=== PATIENT | male | born 1995 | race Caucasian/White ===

== ENCOUNTER 2017-01-27 21:14 | Inpatient (IN) | payer BC, OTHER ==
[~2017-01-27] VITALS: Ht 180.3 cm; Wt 74.6 kg
[2017-01-27 22:07] LABS: URINE APPEARANCE CLEAR (CLEAR); URINE BILIRUBIN NEG (NEG); URINE COLOR YELLOW; URINE NITRITE NEG (NEG); URINE PH 6.5 (4.5-7.5); URINE SPECIFIC GRAVITY 1.008 (1.000-1.030); UROBILINOGEN NEG (NEG); ZZUR CULT IF INDIC CLEAN CATCH NO
[2017-01-27 22:08] LABS: MANUAL MICROSCOPIC REQUIRED? NO; REVIEW REQ? NO
[2017-01-27] MEDS ORDERED: HALOPERIDOL LACTATE 5 MG/ML 1 ML VIAL IM STA (22:20)
[2017-01-27] MEDS ORDERED: LORAZEPAM 2 MG/ML 1 ML VIAL IM STA (22:20)
--- NOTE | 2017-01-27 22:21 | EMERGENCY ROOM VISIT NOTE ---
History Report prepared by Sujata: Antoine Winters Under the Supervision of: Dr. Gladis Mckee M.D. First contact with patient: 21:57 Chief Complaint: MENTAL HEALTH EVALUATION Stated Complaint: MED REFILL, MANIC History of Present Illness The patient is a 21 year old male who presents to the Emergency Room with a persistent need for a mental health evaluation for the past few days. The patient was brought here by [facility] from his dorm, after they received a call from [facility] about the patient's recent "odd behavior". The patient states here that he has no idea why he is here, and is upset with the police because they did not tell him why he was brought here, and the patient wants to know who called the police. The patient notes that he has been in contact with [facility] and [facility], as he is trying to get back on his Wellbutrin, which he has been off of since the end of the summer of 2016. Per the patient's mother , the patient has diagnosed mood disorder, bipolar, and depression. She states that the patient has been trying to get back on his medication since coming back to school, but it is taking a lot longer than they had hoped for. The patient states that he had an incident yesterday, and was locked out of his dorm , and was talking to himself about how he lost his keys, but he woke up someone in a nearby room, so the dorm was going to have a discussion about the incident. He states that he has been okay the past few days, and has been productive with his conversations with [facility] and [employer]. Source of History: patient, parent Onset: Past few days Position: other (global - need for mental health evaluation) Symptom Intensity: brought in by [place] [employer] Quality: other ("odd behavior") Timing: other (persistent) Note: Associated symptoms: Says he has been fine recently, but had incident yesterday in dorm. Review of Systems See HPI for pertinent positives & negatives. A total of 10 systems reviewed and were otherwise negative. Past Medical & Surgical Medical Problems: (1) bipolar 1 disorder, currently with mixed features (2) Bipolar disorder (3) Depression (4) Mood disorder (5) No pertinent past medical history Family History No pertinent family history Social History Smoking Status: Former Smoker Marital Status: single Housing Status: lives with roommate Occupation Status: [employer] student Current/Historical Medications No Active Prescriptions or Reported Meds Allergies Coded Allergies: No Known Allergies (Unverified , 01/27/17) Physical Exam Vital Signs Date Time Temp Pulse Resp B/P (MAP) Pulse Ox O2 Delivery O2 Flow Rate FiO2 01/27/17 23:15 104 18 146/92 96 Room Air 01/27/17 21:17 36.2 101 18 166/92 99 Room Air Physical Exam Vital signs reviewed. General: Agitated, slightly disheveled 21 year old male, in no significant distress. HEENT: No scleral icterus, PERRLA, neck supple. Atraumatic. Cardiovascular: Regular rate and rhythm, no extra sounds. Pulmonary: Clear to auscultation bilaterally, normal work of breathing. Abdomen: Soft, nontender, nondistended, positive bowel sounds. Musculoskeletal: Atraumatic, no peripheral edema. Neurologic: Patient awake alert and oriented x 3, full strength in all 4 extremities. Cranial nerves 2 through 12 grossly intact. Psych: Agitated. No SI, no HI, but aggressive and slamming bed and kicking chairs. Skin: Warm, dry, no rash Medical Decision & Procedures Laboratory Results 01/27/17 22:02 Red Blood Count 4.71, Mean Corpuscular Volume 90.2, Mean Corpuscular Hemoglobin 31.6, Mean Corpuscular Hemoglobin Concent 35.1, Mean Platelet Volume 10.5, Neutrophils (%) (Auto) 80.9, Lymphocytes (%) (Auto) 11.8, Monocytes (%) (Auto) 6.7, Eosinophils (%) (Auto) 0.0, Basophils (%) (Auto) 0.3, Neutrophils # (Auto) 9.08, Lymphocytes # (Auto) 1.32, Monocytes # (Auto) 0.75, Eosinophils # (Auto) 0.00, Basophils # (Auto) 0.03 01/27/17 22:02 Test 01/27/17 21:55 01/27/17 22:02 Urine Color YELLOW Urine Appearance CLEAR (CLEAR) Urine pH 6.5 (4.5-7.5) Urine Specific Tebbetts 1.008 (1.000-1.030) Urine Protein NEG (NEG) Urine Glucose (UA) NEG (NEG) Urine Ketones NEG (NEG) Urine Occult Blood NEG (NEG) Urine Nitrite NEG (NEG) Urine Bilirubin NEG (NEG) Urine Urobilinogen NEG (NEG) Urine Leukocyte Esterase NEG (NEG) Urine Opiates Screen NEG (NEG) Urine Methadone, Qualitative NEG (NEG) Urine Barbiturates NEG (NEG) Urine Phencyclidine (PCP) Level NEG (NEG) Ur Amphetamine/Methamphetamine NEG (NEG) MDMA (Ecstasy) Screen NEG (NEG) Urine Benzodiazepines Screen NEG (NEG) Urine Cocaine Metabolite NEG (NEG) Urine Marijuana (THC) NEG (NEG) White Blood Count 11.21 K/uL (4.8-10.8) Red Blood Count 4.71 M/uL (4.7-6.1) Hemoglobin 14.9 g/dL (14.0-18.0) Hematocrit 42.5 % (42-52) Mean Corpuscular Volume 90.2 fL (80-100) Mean Corpuscular Hemoglobin 31.6 pg (25-34) Mean Corpuscular Hemoglobin Concent 35.1 g/dl (32-36) Platelet Count 282 K/uL (130-400) Mean Platelet Volume 10.5 fL (7.4-10.4) Neutrophils (%) (Auto) 80.9 % Lymphocytes (%) (Auto) 11.8 % Monocytes (%) (Auto) 6.7 % Eosinophils (%) (Auto) 0.0 % Basophils (%) (Auto) 0.3 % Neutrophils # (Auto) 9.08 K/uL (1.4-6.5) Lymphocytes # (Auto) 1.32 K/uL (1.2-3.4) Monocytes # (Auto) 0.75 K/uL (0.11-0.59) Eosinophils # (Auto) 0.00 K/uL (0-0.5) Basophils # (Auto) 0.03 K/uL (0-0.2) RDW Standard Deviation 40.6 fL (36.4-46.3) RDW Coefficient of Variation 12.3 % (11.5-14.5) Immature Granulocyte % (Auto) 0.3 % Immature Granulocyte # (Auto) 0.03 K/uL (0.00-0.02) Anion Gap 7.0 mmol/L (3-11) Est Creatinine Clear Calc Drug Dose 102.8 ml/min Estimated GFR () 98.3 Estimated GFR (Non- 84.8 BUN/Creatinine Ratio 19.0 (10-20) Calcium Level 9.0 mg/dl (8.5-10.1) Total Bilirubin 0.5 mg/dl (0.2-1) Aspartate Amino Transf (AST/SGOT) 16 U/L (15-37) Alanine Aminotransferase (ALT/SGPT) 27 U/L (12-78) Alkaline Phosphatase 70 U/L (45-117) Total Protein 7.9 gm/dl (6.4-8.2) Albumin 4.7 gm/dl (3.4-5.0) Globulin 3.2 gm/dl (2.5-4.0) Albumin/Globulin Ratio 1.5 (0.9-2) Thyroid Stimulating Hormone (TSH) 1.730 uIu/ml (0.300-4.500) Salicylates Level < 1.7 mg/dl (2.8-20) Acetaminophen Level < 2 ug/ml (10-30) Ethyl Alcohol mg/dL < 3.0 mg/dl (0-3) Laboratory results per my review. Medications Administered Medications (Trade) Dose Ordered Sig/Archie Route Start Time Stop Time Status Last Admin Dose Admin Ibuprofen (Advil Tab) 400 mg STK-MED ONCE .ROUTE 01/28/17 01:31 01/28/17 01:32 DC 01/28/17 01:35 400 MG ED Course 2208: Past medical records reviewed. The patient was evaluated in room A7. A complete history and physical examination was performed. 2220: Ordered Ativan Inj 2 mg IM, Haldol Inj 5 mg IM. 0130: The patient was signed out to Dr. Puga at change of shift. Medical Decision Differential diagnosis: Etiologies such as mood disorder, infection, hypoglycemia, electrolyte abnormalities, cardiac sources, intracerebral event, toxicologic, neurologic, as well as others were entertained. This pt was evaluated and appeared to be in no distress. After a short period of discussion, pt became agitated and aggressive. He was not clearly suicidal, but began to show his lack of insight. After discussion with pt family, it is evident that he needed inpatient treatment. Mental health watch case polisher was consulted, pt was evaluated by [facility]. Case was signed out to Dr Puga at the change of shift pending disposition. Medication Reconcilliation Current Medication List: was personally reviewed by me Blood Pressure Screening Patient's blood pressure: Elevated blood pressure Blood pressure disposition: Elevated BP felt to be situational Impression Primary Impression: Mood disorder Scribe Attestation The scribe's documentation has been prepared under my direction and personally reviewed by me in its entirety. I confirm that the note above accurately reflects all work, treatment, procedures, and medical decision making performed by me. Departure Information Dispostion Still a Patient (signed out to Dr. Puga) Prescriptions No Active Prescriptions or Reported Meds Patient Instructions My [facility]
[2017-01-27 22:24] LABS: BASO % 0.3 %; BASO ABS # 0.03 K/uL (0-0.2); COMPLETE YES; HEMATOCRIT 42.5 % (42-52); IG% 0.3 %; LYMPH % 11.8 %; LYMPH ABS # 1.32 K/uL (1.2-3.4); MEAN CELL VOLUME 90.2 fL (80-100); MEAN CORPUSCULAR HEMOGLOBIN 31.6 pg (25-34); MEAN CORPUSCULAR HGB CONC 35.1 g/dl (32-36); MEAN PLATELET VOLUME 10.5 fL (7.4-10.4); MONO % 6.7 %; NEUT % 80.9 %; PLATELET COUNT 282 K/uL (130-400); RED BLOOD COUNT 4.71 M/uL (4.7-6.1); WHITE BLOOD COUNT 11.21 K/uL (4.8-10.8)
[2017-01-27 22:39] LABS: BENZODIAZEPINE, URINE NEG (NEG); COCAINE,URINE NEG (NEG); PHENCYCLIDINE, URINE NEG (NEG)
[2017-01-27 22:40] LABS: CREATININE 1.22 mg/dl (0.60-1.40); POTASSIUM 3.6 mmol/L (3.5-5.1)
[2017-01-27 22:51] LABS: ALB/GLOB RATIO 1.5 (0.9-2); THYROID STIMULATING HORMONE 1.73 uIu/ml (0.300-4.500)
[2017-01-27 22:55] LABS: ACETAMINOPHEN < 2 ug/ml (10-30)
[2017-01-28] MEDS ORDERED: IBUPROFEN 200 MG TAB ONE (01:31)
[2017-01-28] MEDS ORDERED: NURSING VERBAL MED ORDER ONE (05:00)
[2017-01-28 05:13] VITALS: O2SAT 99
--- NOTE | 2017-01-28 05:14 | EMERGENCY ROOM VISIT NOTE ---
ED Visit Note First contact with patient: 01:21 This case was signed out to me at change of shift awaiting evaluation by staff from [facility]. 1:30: Patient complained of a headache and was given 800 mg of Motrin. 3:45: The patient had an extensive evaluation by the staff from [facility]. They had significant concerns for the patient's overall safety and ability to make safe decisions. They had multiple conversations with the patient's mother father. I had a lengthy conversation with the patient at the bedside and he agreed that he needed some help and was willing to sign himself in voluntarily for inpatient psychiatric care. 0450: The patient has signed himself in voluntarily and has been accepted on [facility].
[2017-01-28] MEDS ORDERED: BISMUTH SUBSALICYLATE PER ML OMNICELL CHARGE PO PRN (05:30)
[2017-01-28] MEDS ORDERED: ACETAMINOPHEN 325 MG TAB PO PRN (05:30)
[2017-01-28] MEDS ORDERED: hydrOXYzine HCL 25 MG TAB PO PRN ×2 (05:30)
[2017-01-28] MEDS ORDERED: SODIUM CHLORIDE 0.65% NA SOLN 45 ML (OCEAN) PRN (05:30)
[2017-01-28] MEDS ORDERED: ALUMINUM/MAGNESIUM SUSP 30 ML UDC PO PRN (05:30)
[2017-01-28] MEDS ORDERED: MAGNESIUM HYDROXIDE SUSP 30 ML UDC PO PRN (05:30)
[2017-01-28 06:04] VITALS: BP 136/75; PULSE 80; TEMP 36.2; Ht 180.3 cm; Wt 74.6 kg
[2017-01-28 07:11] VITALS: BP_SYST 144; BP_SYST 158; BP_DIAS 74; BP_DIAS 83; PULSE 64; PULSE 74; TEMP 36.8
[2017-01-28] MEDS ORDERED: RISPERIDONE 0.5 MG TAB PO ONE (10:59)
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
--- NOTE | 2017-01-28 12:22 | Medical Student: BHU Only ---
Psychiatric Evaluation IDENTIFYING DATA: Gonzalo Andres is a 21-year-old male who currently lives in [place] in a [employer] dorm with roommate. Gonzalo Andres was admitted to the [facility] on a 201 voluntary commitment. Gonzalo Andres was brought to the hospital by the police. Information provided by the patient is considered to be reliable. CHIEF COMPLAINT: "[patients report in their own words]". HISTORY OF PRESENT ILLNESS: Nolberto is a 21 year old male with a history of bipolar I disorder and major depressive disorder who presented to the ED last night by police transport for an apparent manic episode. Last night he states he was locked out of his dorm room and was visibly frustrated. The RA (someone named "Sukumar") tried to talk to him, and he became increasingly agitated. Someone, presumably Sukumar, called the campus police, who brought Nolberto to the ED. Per staff in ED, Nolberto was restless, at times walking around his room singing or doing push-ups. Initially [facility] was called for a 301, but they denied it; Nolberto then signed in voluntarily and was brought to [address] [place] [address] early this morning. According to [facility], there had been several complaints about Nolberto standing outside of another student's dorm room, which made her uncomfortable, as well as erratic and nonsensical behavior, including talking to himself and singing while walking the dorm halls. They also said that Nolberto had complained of "bugs in my lungs" and "crawling all over me." He was also assessed by [facility] -- those records are being sent. According to Nolberto, he has recently been in contact with [facility] and [facility], and saw Dr. Marcano on Wednesday because he "wanted to go back on [his] medication". He told us that in the past he had been prescribed Abilify and Wellbutrin for his major depressive disorder but that he had stopped taking both medications in March 2016 because he felt he did not need them anymore. He is not currently on any psychiatric medications. This semester, he has had trouble staying focused and has been sleeping 12-15 hours per night. He said that he has had to drop two classes because of absences and because of his inability to "focus on tests in a big lecture anderson." He is currently taking two classes that are going "okay". 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 Nolberto has history of two prior hospital admissions for psychiatric illness, one while he was in high school and one in April 2015. Both were for major depressive disorder. His mother states that he has had manic episodes in the past, during which he has pressured speech and speaks quickly, doesn't sleep at night, goes for long walks, and is increasingly irritable with a "quick temper. " He is much more outgoing and talkative than usual during these episodes. She states that his current state is very similar to his past episodes (she observed very simialr behavior when he was home for giving break) but that this has lasted longer. She also said that he has exhibited some paranoia, that he thinks certain people are out to get him (he described being suspicious of an ex-girlfriend's brother for "putting a virus on my phone"), and that he has increased trouble focusing. His last episode that his mother is aware of was over the summer than he was home. On presentation today, Nolberto states that his mood has been "a little down" recently and that he has been sleeping excessivley. His appetite has been "good ". He admits that he has had a lot of problems with focus and concentration and some increase in energy levels. He appears irritable and slightly agitated. He states that he has many interests and that he still finds those to be enjoyable. He denies any suicidal or homicidal ideation as well as SIB. CURRENT MEDICATIONS: 1. None. PAST PSYCHIATRIC HISTORY: Current outpatient mental health treatment: []. Prior outpatient mental health treatment: []. Prior psychiatric hospitalizations: []. Prior medication trials: [Describe as to how long on medication, any side effects, who started the meds, have they been helpful, why was the medication stopped, etc.]. Prior suicide attempts: []. Access to weapons: [] PAST MEDICAL HISTORY: Current OP Treatment: psychiatrist (Dr. Vernell Cabral) Prior OP Treatment: psychiatrist Prior Psych [facility]izations[facility]; first hospitalization when he was in high school; second was in April 2015 Access to a Gun: No Suicide Attempts: No Past Medication Trials 1. Abilify and Wellbutrin-used together, thought they worked well, stopped in March 2016 when he no longer felt he needed them 2. Remeron-not helpful 3. Prozac-only on for 5 days during his first hospitalization, developed diarrhea ALLERGIES: No known allergies. FAMILY HISTORY: Mental Health: father with depression Substance Abuse: FGM/FGF/MGM with history of alcohol abuse Suicide: none SUBSTANCE USE HISTORY: Tobacco use hx: smoked cigars, "vaping"; hasn't used either for several months Caffeine use hx: coffee Marijuana use: hasn't used it in 9 months but wants to start again when he goes to [place] to visit sister PERSONAL HISTORY: Born: [place], [place]. Lives with both parents and has good relationships with them. Siblings: Older sister, lives in [place]. Mom says they are very close. Education: Currently computer science major at [employer]. Hopes to graduate in 2019. Has had "good" grades until this semester, when trouble focusing increased. Work History: Part-time jobs during the summer; fired from on-campus job at dining [employer] (see above). Relationship History: Ex-girlfriend; they broke up over the summer. Has few friends. Those he had have left campus for various reasons. Children: none. Spiritual Affiliation: Gnosticism; raised in [facility] am[place]. Reads his Bible when he is feeling "down". Legal History: [specifically inquire of DUIs, disorderly conducts]. Physical abuse history: None. Emotional/psychological abuse history: None. Sexual abuse history: None. ROS: CONSTITUTIONAL: 5-7 lb weight loss over las few weeks; no fevers or chills. HEENT: Eyes: no changes in vision. Ears, Nose, Throat: no cough, change in hearing, nose bleeds. SKIN: No recent rashes or abrasions; notes dryness of hands due to "cold weather". CARDIOVASCULAR: No palptations, chest pain, edema. RESPIRATORY: No shortness of breath, cough. GASTROINTESTINAL: Mild nausea that has how resolved; no vomiting, diarrhea. GENITOURINARY: Deferred. NEUROLOGICAL: No numbness/tingling, weakness. MUSCULOSKELETAL: Normal ROM for all extremities, no swelling, no calf pain. PSYCHIATRIC: See above HPI. ALLERGIES: None. PHYSICAL EXAM: Done in ED by Dr. Mckee and agree. Medically cleared to be on [facility]. MENTAL STATUS EXAM: Appearance is that of a disheveled, casually dressed male who appears his stated age. The patient is generally cooperative with the interview. Eye contact is poor. Motor behavior is agitated, restless. Speech: normal volume, increased rate. Is pressured and rambles. Affect: irritable. Mood: "fine". Thought process: circumstantial, tangential. Thought content: paranoia. Perception: no hallucinations. Intelligence is estimated to be above average. Insight is estimated to be fair. Judgment is estimated to be fair. INVENTORY OF ASSETS: * strengths: Supportive family, many interests. * resources: Family, mental health providers, [employer] [facility] and Student Affairs. * needs: Medication trial, monitor mood, mitigate manic episode. RISK ASSESSMENT: * Risk factors: Male, , single, Higher social status, Mental Health Diagnoses (depression, bipolar I), Substance Use Disorders (previous marijuana use), Previous psychiatric hospitalization * Protective factors: Oriental Orthodox beliefs, Supportive family, Good rapport with provider? DIAGNOSTIC IMPRESSION: This is a 21-year-old male with a history of bipolar I and major depressive disorder who presented to the ED with an apparent manic episode. He is not currently on any medication. Today he is still agitated and has been observed by staff to be singing to himself and speaking out loud repetitively, along with restlessness and some pacing. His mother confirmed that this is similar to manic episodes he has had in the past. He has also had trouble focusing for several months and has been sleeping 12-15 hours a night. These symptoms combined point to a likely mixed bipolar episode. DSM-V DIAGNOSIS: bipolar I disorder, mixed episode without psychosis RECOMMENDATIONS: 1. Bipolar I a. Risperdol 0.5 mg for acute stabilization. b. Consider lithium or Depakote for long-term mood stabilization. Discuss need for compliance with blood work with patient. Will need baseline labs. c. Obtain outside records and more information from family - Mom was contacted , her words are above. d. Encourage participation in groups. e. Encourage calming behaviors and coping mechanisms for cortez. f. Follow up with [employer] about aftercare planning/return to school for semester. Date of Service: Jan 28, 2017.
[2017-01-28] MEDS: RISPERIDONE 0.5 MG TAB PO SCH (21:35)
[2017-01-29 08:25] LABS: CHOLESTEROL/HDL RATIO 1.6
[2017-01-29] MEDS: RISPERIDONE 0.5 MG TAB PO SCH (09:53)
--- NOTE | 2017-01-29 10:59 | Medical Student: BHU Only ---
Psychiatric Evaluation SUBJECTIVE: Nolberto is a 21 year old male who is on Day 2 of admission to the [facility]. He presented to the ED two days ago by campus police after an RA called them for Nolberto's disruptive/odd behavior, as he had locked himself out of his room and was becoming increasingly agitated. He was seen and assessed today, and progress was reviewed with nursing. The patient reports doing "pretty good", a 7/10. Sleep was "ok"; he had trouble falling asleep, stating he was up until around 0500, but he slept for five straight hours after that. He attributes this to drinking coffee after lunch, which normal would not do. He told me that he spoke on the phone with his parents yesterday and that they are planning to visit him over the weekend. He has participated in most groups, and his cortez has slowly been subsiding with the use of Risperdal and Ativan PRN. He was very pleasant/much less agitated this morning, and his only concern was that he was hoping to "trim his mustache if they will let me have a razor." ROS: Patient states that he slept for about five hours after falling asleep late due to coffee intake later than usual. His appetite has been "good," though he did oversleep and miss breakfast this morning. Denies SI/HI. He states that his focus has improved since being here, though he hasn't attempted to study. Denies headache, chest pain, shortness of breath, nausea/vomiting, numbness/ tingling, pain. MSE: Appearance is that of a neatly groomed casually dressed male who appears his stated age. The patient is generally cooperative with the interview. Eye contact is fair. Motor behavior is slightly restless but is much improved since yesterday. Speech: normal volume, rate, tone. Affect: congruent with thought content. Mood : "7/10, pretty good". Thought process: goal directed, minimally circumstantial. Thought content: Denies delusions, SI, HI. Perception: denies illusions, hallucinations. Intelligence is estimated to be above average. Insight is estimated to be good. Judgment is estimated to be fair. ASSESSMENT: This is a 21 year old male with a history of bipolar I and major depressive disorder who presented to the [facility] early yesterday morning from the ED after being brought in by campus police for increasingly agitated/odd behavior, an apparent manic episode. Today he is feeling "pretty good" and appears much more calm and comfortable. He asked about his treatment plan and about going "back on Bupropion", and I reminded him about our discussion yesterday about starting him on a mood stabilizer like Depakote or lithium. He was agreeable to this and said "anything you think will work." PLAN: 1. Bipolar I disorder a. Continue Ativan and Risperdal PRN until mood stabilizer is effective. b. Start Depakote 250 mg TID; monitor blood levels of drug and ammonia levels. c. Encourage group attendance and interaction with other residents. d. Work to set up aftercare in his place of residence when not at [facility] ([facility]). Contact [facility] student affairs to set up potential leave of absence. Date of Service: Jan 29, 2017.
--- NOTE | 2017-01-29 11:57 | Psychiatric Progress Notes ---
Progress Note Date of Service Jan 29, 2017. Interval History 21-year-old [employer] student with a history of bipolar disorder by report, presents with unusual behaviors, disrupting others at his storm. A 302 petition her statement was made in the emergency room but can help denied the warrant. The patient was willing to sign in voluntarily. He presents in a somewhat mixed state. Chief Complaint "OK, I guess". Subjective Patient was seen & assessed interval progress reviewed with Treatment Team. The patient says that when he awoke this AM he had thoughts that the berumen had shrunk, but later realized that it wasn't true. He feels the Risperdal is working, but cannot verbalize how. Although he denied racing thoughts yesterday , he says that his thoughts are slower today. Nursing reports that he slept only 1 hr on night baker, coming in and out of his room. He says that he had a lot on his mind, was journaling, had a lot of energy. He denies aud/vis hallucinations. He denies fearful thoughts, but is rapidly looking around the room and out to the hallway throughout the interview. He denies side effects to meds including muscle complaints, but does say that he is mildly constipated. I review information from his mother and the need to get records from his previously hospitalizations and provider and he agrees to sign [facility]'s Review of Systems Constitutional: No fever, No chills, No sweats, No weight loss, No weakness, No fatigue, No problem reported ENT: No hearing loss, No unusual epistaxis, No nasal symptoms, No sore throat, No tinnitus, No dental problems, No trouble swallowing, No problem reported Respiratory: No cough, No sputum, No wheezing, No shortness of breath, No dyspnea on exertion, No dyspnea at rest, No hemoptysis, No problem reported Cardiovascular: No chest pain, No orthopnea, No PND, No edema, No claudication , No palpitations, No problem reported Abdomen: + constipation Musculoskeletal: No joint pain, No muscle pain, No swelling, No calf pain, No problem reported Neurologic: No memory loss, No paralysis, No weakness, No numbness/tingling, No vertigo, No balance problems, No problem reported Psychiatric: No depression symptoms, No anhedonism, No anxiety, No insomnia, No substance abuse, No problem reported Integumentary: No rash, No itch, No new/changing skin lesions, No color change , No bleeding, No problem reported Sleep Information Total Hours of Sleep: 1.00 Meal Information Percent of Breakfast Consumed: 50 Percent of Lunch Consumed: 75 Percent of Dinner Consumed: 100 Mental Status Exam During interview pt is: alert and oriented, cooperative Appearance: appropriately dressed, appropriately groomed Eye contact is: poor (glacing around the room and out to the hallway) Motor behavior is: psychomotor agitation (mild, restless) Speech: normal in rate, rhythm & volume, other (at times rapid but able to be silent for periods of time) Affect: flat Mood is: other ("OK") Thought process: other (easily distracted, vague) Thought content: paranoid Suicidal thought are: denied Homicidal thoughts are: denied Hallucinations: denies auditory, denies visual Cognition: language grossly intact Intelligence estimated to be: average Insight: impaired Judgement: impaired Impression Nolberto is adjusting to the unit. He was up almost all night last night with racing thoughts and high energy. Will order risperdal 1 mg. q 6 prn. Reviewed recs for a trial of depakote for mood stabilization, R/B/A including risk for weight gain, need for levels and he wishes to proceed. Will start Depakote ER 500 mg. tonight increasing to 1000 mg tomorrow, with a level in 5 days from that. Will continue to gather info from previous providers. Will need to be in contact with [facility] re: any concerns they have and whether he will be allowed back into the dorms. We are hopeful that he will be ready for a family meeting by early next week. Plan (1) bipolar 1 disorder, currently with mixed features 01/28 - Will start Risperdal 0.5 mg twice a day while we get a better medication history from parents. Consideration is being given to Depakote or lithium as a mood stabilizer. - Will order a fasting lipid panel and fasting glucose for monitoring on atypicals - Every 15 minute checks for safety - Encourage participation in group and individual counseling as tolerated - Encourage the patient to engage in quieting behaviors - Will need psychiatric aftercare although location not currently determined as he may need to withdraw from school this semester. - Obtain records from previous hospitalizations and outpatient providers - Family meeting if indicated 01/29 - Increase Risperdal to 0.5 mg. AM and 1 mg. HS - Start Depakote ER 500 mg. tonight increasing to 1000 mg tomorrow with level 5 days following. - Reviewed monitoring labs WNL Has been reviewed with Dr. Selena Montanez Discharge / Aftercare Planning Primary Care Physician: Name: [facility] Other: [facility] App[facility]ment [facility] Visit Code E&M Code: 26299 Inventory Assets Strengths: Intelligence, support from parents Needs: To remain on medications as prescribed Risk Factors Assessment Male: Yes : Yes /single/: Yes Higher / Fall in social status: No Health problems: No Mental Health Diagnoses: Yes Substance use disorders: No Previous attempt: No Family history of suicide: No Previous psychiatric stay: Yes Hopelessness: No Smoker: No Protective Factors Assessment Islam beliefs: Yes : No Responsible for young children: No Employed: No Stable relationships: No Supportive family: Yes Data Vital Signs Last 24 Hrs: Last Vital Signs Documentation Date Time Temp Pulse Resp B/P (MAP) Pulse Ox O2 Delivery O2 Flow Rate FiO2 01/28/17 07:11 36.8 64 16 158/74 74 144/83 01/28/17 05:13 99 01/27/17 23:15 Room Air Meds Administered Last 24 Hrs: Meds Administered (Past 24Hrs) Medications (Trade) Dose Ordered Sig/Archie Route Start Time Stop Time Status Last Admin Dose Admin Ibuprofen (Advil Tab) 400 mg STK-MED ONCE .ROUTE 01/28/17 01:31 01/28/17 01:32 DC 01/28/17 01:35 400 MG Hydroxyzine HCl (Vistaril Tab) 50 mg HSZ PRN PO 01/28/17 05:30 02/27/17 05:29 01/28/17 23:34 50 MG Hydroxyzine HCl (Vistaril Tab) 25 mg Q4H PRN PO 01/28/17 05:30 02/27/17 05:29 01/28/17 06:08 25 MG Risperidone (Risperdal Tab) 0.5 mg BID PO 01/28/17 22:00 02/27/17 21:59 01/29/17 09:53 0.5 MG Risperidone (Risperdal Tab) 0.5 mg 1059 ONCE PO 01/28/17 10:59 01/28/17 11:03 DC 01/28/17 12:37 0.5 MG Lab Results Last 24 Hrs: Last 24 Hours Test 01/29/17 07:09 Fasting Glucose 79 mg/dl Triglycerides Level 35 mg/dl Cholesterol Level 119 mg/dl HDL Cholesterol 74 mg/dl LDL Cholesterol, Calculated 38 mg/dl VLDL Cholesterol, Calculated 7 mg/dl Cholesterol/HDL Ratio 1.6
[2017-01-29] MEDS: DIVALPROEX 500 MG EXTENDED RELEASE TAB PO SCH (21:25)
[2017-01-29] MEDS ORDERED: RISPERIDONE 1 MG TAB PO SCH (22:00)
[2017-01-30 06:48] VITALS: BP_SYST 124; BP_SYST 125; BP_DIAS 74; BP_DIAS 84; PULSE 63; PULSE 74; TEMP 36.4
[2017-01-30] MEDS: RISPERIDONE 0.5 MG TAB PO SCH (08:37)
--- NOTE | 2017-01-30 12:17 | Psychiatric Progress Notes ---
Progress Note Date of Service Jan 30, 2017. Interval History 21-year-old [employer] student with a history of bipolar disorder by report, presents with unusual behaviors, disrupting others at his storm. A 302 petition her statement was made in the emergency room but can help denied the warrant. The patient was willing to sign in voluntarily. He presents in a somewhat mixed state. Chief Complaint "Uh, pretty good". Subjective Patient was seen & assessed interval progress reviewed with Nursing. Staff report his mother reported that police contacted her regarding notes the patient wrote with suicidal and homicidal statements towards parents. His parents are coming to this weekend and a meeting is scheduled for Wednesday with the social welfare research worker. Today he states he is "better, I think I'll be getting out of here soon." He says he has had problems with anger, "I thought I was being hazed, a bully maybe, not any of my fellow black hats, but the red hats perhaps were trying to take advantage of their power... so I'm pretty mad at some of the red hats." He talks at length about this, and it is difficult to follow his train of thought. He denies thoughts of harming others, but repeatedly returns to his belief that he's being "bullied" and that others in his workplace talk badly about him, and that he is "a little mad about that." He thinks someone in the [employer] might have made a phone call to get him admitted, "one of the yellow hats called me rich, rich and spoiled." It is difficult to get him to talk about anything else, says he is mad because "I got fired, 03/30 of the workers are jerks, they like to take advantage of their power, throw it in people's faces!" He reports mood is "pretty good," and denies SI, "no not at all." He denies thoughts of harming others currently, but says "there were two events this semester" where he did have thoughts of harming others. He denies side effects from Depakote, and says "the doctor told me it might make me mad." When asked about the notes found in his dorm room that contained threatening statements towards his parents, he said "no that's a lie, that's Blu ([employer] officer) trying to cover his ass, he lied to me, he lied 3 times and his partner lied to me!" He gives inconsistent reports about sleep, initially states he is sleeping poorly, then says sleep is "great! Except when you guys kept me up." He is trying to go to groups, but says he sometimes misses them as he doesn't know what is going on. He has not gotten prn risperidone, but is taking his scheduled doses of risperidone and Depakote. He says he plans to return to school and classes, and repeatedly returns to his anger at a particular agricultural technical officer, who he thinks lied to him, because he told the patient he could come to the hospital and get meds and be back at class the following day. He is very difficult to redirect from this topic. He doesn't think he needs to be in the hospital, "I just need medication, a therapist, a psychiatrist, and to go to class!" Sleep Information Total Hours of Sleep: 6.50 Meal Information Percent of Breakfast Consumed: 100 Percent of Lunch Consumed: 100 Percent of Dinner Consumed: 100 Mental Status Exam During interview pt is: alert and oriented, cooperative (partially, but very angry, loud, required frequent redirection), other (requires frequent redirection) Appearance: appropriately dressed, appropriately groomed Eye contact is: poor (glacing around the room and at the floor) Motor behavior is: psychomotor agitation (restlessness) Speech: other (pressured, rapid, loud) Affect: irritable, constricted, other (inconsistent with stated mood) Mood is: other ("great") Thought process: other (easily distracted, vague, answers with unrelated information at times, difficult to redirect) Thought content: paranoid Suicidal thought are: denied Homicidal thoughts are: denied (per mother police found notes in his dorm room with suicidal statements and homicidal statements towards parents) Hallucinations: denies auditory, denies visual Cognition: language grossly intact Intelligence estimated to be: average Insight: impaired Judgement: impaired Impression Nolberto remains manic, easily agitated, paranoid, and disorganized. We are titrating up on risperidone and Depakote. Sleep is improving, as he slept 0-1 hours his first 2 nights in the hospital, but last night slept 6-1/2 hours. We are attempting to get records from past providers and to coordinate with the University re: any concerns they have and whether he will be allowed back into the dorms. We are hopeful that he will be ready for a family meeting by Wednesday. His parents are visiting this weekend, so we will have an opportunity to budget examiner how he does with them when they visit. His mother informed staff that police notified her they found in his dorm room where he made threatening statements towards parents and suicidal statements, but he denies this. Plan (1) bipolar 1 disorder, currently with mixed features 01/28 - Will start Risperdal 0.5 mg twice a day while we get a better medication history from parents. Consideration is being given to Depakote or lithium as a mood stabilizer. - Will order a fasting lipid panel and fasting glucose for monitoring on atypicals - Every 15 minute checks for safety - Encourage participation in group and individual counseling as tolerated - Encourage the patient to engage in quieting behaviors - Will need psychiatric aftercare although location not currently determined as he may need to withdraw from school this ester. - Obtain records from previous hospitalizations and outpatient providers - Family meeting if indicated 01/29 - Increase Risperdal to 0.5 mg. AM and 1 mg. HS - Start Depakote ER 500 mg. tonight increasing to 1000 mg tomorrow with level 5 days following. - Reviewed monitoring labs WNL 01/30 - Increase risperidone to 0.5mg qam and 2mg qhs, and continue Depakote 1000mg qhs. - Family meeting with parents scheduled for Wednesday. Discharge / Aftercare Planning Primary Care Physician: Name: Dr. Meir Mahoney, [facility] Date of Appointment: Feb 15, 2017 Time of Appointment: 1:00 PM Appointment Notes: medication check for over winter break Other: Name of App[facility] Date of Appointment #1: Feb 04, 2017 Time of Appointment #1: 10 AM Appointment #1 Notes: [employer] Person Visit Code E&M Code: 45515 Inventory Assets Strengths: Intelligence, support from parents Needs: To remain on medications as prescribed Risk Factors Assessment Male: Yes : Yes /single/: Yes Higher / Fall in social status: No Health problems: No Mental Health Diagnoses: Yes Substance use disorders: No Previous attempt: No Family history of suicide: No Previous psychiatric stay: Yes Hopelessness: No Smoker: No Protective Factors Assessment Denominational beliefs: Yes : No Responsible for young children: No Employed: No Stable relationships: No Supportive family: Yes Good rapport with provider: No (No psychiatric providers) Data Vital Signs Last 24 Hrs: Date Time Temp Pulse Resp B/P (MAP) Pulse Ox O2 Delivery O2 Flow Rate FiO2 01/30/17 06:48 36.4 63 16 124/74 74 125/84 Meds Administered Last 24 Hrs: Meds Administered (Past 24Hrs) Medications (Trade) Dose Ordered Sig/Archie Route Start Time Stop Time Status Last Admin Dose Admin Risperidone (Risperdal Tab) 0.5 mg BID PO 01/28/17 22:00 01/29/17 11:59 DC 01/29/17 09:53 0.5 MG Risperidone (Risperdal Tab) 0.5 mg QAM PO 01/30/17 09:00 03/01/17 08:59 01/30/17 08:37 0.5 MG Risperidone (Risperdal Tab) 1 mg HS PO 01/29/17 22:00 02/28/17 21:59 01/29/17 21:25 1 MG Divalproex Sodium (Depakote Extended Rel Tab) 500 mg Taper HS PO 01/29/17 22:00 03/01/17 21:59 01/29/17 21:25 500 MG
[2017-01-30] MEDS: RISPERIDONE 1 MG TAB PO SCH (22:15)
[2017-01-30] MEDS: DIVALPROEX 500 MG EXTENDED RELEASE TAB PO SCH (22:15)
[2017-01-31 07:02] VITALS: BP_SYST 139; BP_SYST 149; BP_DIAS 67; BP_DIAS 70; PULSE 114; PULSE 67; TEMP 36.3
--- NOTE | 2017-01-31 08:03 | Psychiatric Progress Notes ---
Progress Note Date of Service Jan 31, 2017. 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 A 302 petition her statement was made in the emergency room but can help denied the warrant. The patient was willing to sign in voluntarily. He presents in a somewhat mixed state. Chief Complaint "Good". Subjective Patient was seen & assessed interval progress reviewed with Nursing. Staff report he is attending groups and was appropriate, is eating 100% of meals, and had a visit with his parents. He told staff he was worried that the visit could go poorly, as in the past when they visited while he was inpatient "there was yelling involved." He was able to tolerate the visit with them without incident. They have a meeting scheduled for tomorrow. His morning risperidone was held this morning as he was sedated and falling asleep in group. On my assessment, he is alert and oriented, and calmer than yesterday. He states that his mood is "good," rates it as 7 out of 10, although it was as high as a 9 out of 10 yesterday. He feels that the medications are helping, and no longer feels sedated, but states he felt tired this morning when he first woke up although it has since resolved. He denies thoughts of harming himself or anyone else. Sleep Information Total Hours of Sleep: 6.00 Meal Information Percent of Breakfast Consumed: 100 Percent of Lunch Consumed: 100 Percent of Dinner Consumed: 100 Mental Status Exam During interview pt is: alert and oriented, cooperative Appearance: appropriately dressed, appropriately groomed Eye contact is: fair Motor behavior is: steady gait & station, psychomotor agitation (fidgeting) Speech: normal in rate, rhythm & volume Affect: euthymic, other (calmer and more appropriate today) Mood is: other ("good") Thought process: other (easily distracted, vague, answers with unrelated information at times, difficult to redirect) Thought content: reality based without delusions Suicidal thought are: denied Homicidal thoughts are: denied (per mother police found notes in his dorm room with suicidal statements and homicidal statements towards parents) Hallucinations: denies auditory, denies visual Cognition: language grossly intact Intelligence estimated to be: average Insight: impaired Judgement: impaired Impression Sleep and manic and psychotic symptoms are improving. We are titrating up on risperidone and Depakote. He was able to tolerate a visit from his parents, and a family meeting is scheduled for tomorrow. We are attempting to get records from past providers and to coordinate with the [employer] re: any concerns they have and whether he will be allowed back into the dorms. We are hopeful that he will be ready for a family meeting by Wednesday. His mother informed staff that police notified her they found in his dorm room where he made threatening statements towards parents and suicidal statements, but he denies this. This will need to be addressed further at his meeting. Plan (1) bipolar 1 disorder, currently with mixed features 01/28 - Will start Risperdal 0.5 mg twice a day while we get a better medication history from parents. Consideration is being given to Depakote or lithium as a mood stabilizer. - Will order a fasting lipid panel and fasting glucose for monitoring on atypicals - Every 15 minute checks for safety - Encourage participation in group and individual counseling as tolerated - Encourage the patient to engage in quieting behaviors - Will need psychiatric aftercare although location not currently determined as he may need to withdraw from school this semester. - Obtain records from previous hospitalizations and outpatient providers - Family meeting if indicated 01/29 - Increase Risperdal to 0.5 mg. AM and 1 mg. HS - Start Depakote ER 500 mg. tonight increasing to 1000 mg tomorrow with level 5 days following. - Reviewed monitoring labs WNL 01/30 - Increase risperidone to 0.5mg qam and 2mg qhs, and continue Depakote 1000mg qhs. - Family meeting with parents scheduled for Wednesday. 01/31 - D/c AM dose of risperidone but continue 2mg qhs and Depakote 1000mg qhs. Discharge / Aftercare Planning Primary Care Physician: Name: Dr. Meir Mahoney, [facility] Date of Appointment: Feb 15, 2017 Time of Appointment: 1:00 PM Appointment Notes: medication check for over winter break Other: Name of App[facility] Date of Appointment #1: Feb 04, 2017 Time of Appointment #1: 10 AM Appointment #1 Notes: [employer] Visit Code E&M Code: 64322 Inventory Assets Strengths: Intelligence, support from parents Needs: To remain on medications as prescribed Risk Factors Assessment Male: Yes : Yes /single/: Yes Higher / Fall in social status: No Health problems: No Mental Health Diagnoses: Yes Substance use disorders: No Previous attempt: No Family history of suicide: No Previous psychiatric stay: Yes Hopelessness: No Smoker: No Protective Factors Assessment Latter Day beliefs: Yes : No Responsible for young children: No Employed: No Stable relationships: No Supportive family: Yes Good rapport with provider: No (No psychiatric providers) Data Vital Signs Last 24 Hrs: Date Time Temp Pulse Resp B/P (MAP) Pulse Ox O2 Delivery O2 Flow Rate FiO2 01/31/17 07:02 36.3 67 16 149/67 114 139/70 Meds Administered Last 24 Hrs: Meds Administered (Past 24Hrs) Medications (Trade) Dose Ordered Sig/Archie Route Start Time Stop Time Status Last Admin Dose Admin Risperidone (Risperdal Tab) 0.5 mg QAM PO 01/30/17 09:00 03/01/17 08:59 01/30/17 08:37 0.5 MG Risperidone (Risperdal Tab) 1 mg HS PO 01/29/17 22:00 01/30/17 12:17 DC 01/29/17 21:25 1 MG Divalproex Sodium (Depakote Extended Rel Tab) 1,000 mg Taper HS PO 01/29/17 22:00 03/01/17 21:59 01/30/17 22:15 1,000 MG Risperidone (Risperdal Tab) 2 mg HS PO 01/30/17 22:00 02/28/17 21:59 01/30/17 22:15 2 MG
[2017-01-31] MEDS: RISPERIDONE 0.5 MG TAB PO SCH (09:00)
[2017-01-31] MEDS: RISPERIDONE 1 MG TAB PO PRN (19:22)
[2017-01-31] MEDS: DIVALPROEX 500 MG EXTENDED RELEASE TAB PO SCH (19:50)
[2017-01-31] MEDS: RISPERIDONE 1 MG TAB PO SCH (19:51)
[2017-02-01 07:15] VITALS: BP_SYST 101; BP_SYST 108; BP_DIAS 61; BP_DIAS 67; PULSE 57; PULSE 91; TEMP 36.4
--- NOTE | 2017-02-01 10:47 | Medical Student: BHU Only ---
Psychiatric Progress Note SUBJECTIVE: Nolberto is a 21-year-old male who presented to the ED four days ago after [facility] campus police were called to his dorm for increasing agitation and apparent bipolar episode. Today he says that he is doing "well" and that his mood is "8 or 9/10". He says that he was able to see his parents twice on Wednesday and twice yesterday (Wednesday), and that the first three visits went "very well". The fourth visit ended with some animosity, and Nolberto told me that he felt his father overstepped his boundaries when he asked told the nurse that Nolberto seemed a bit more agitated, which led to the nurse giving him PRN Risperdal. Nolberto states that he realizes the nurse was right in giving him medication, because he did feel that he was more agitated, but he was angry that his father stepped in instead of letting Nolberto handle it. Despite this, Nolberto is looking forward to his formal family meeting today and is hopeful that he can get back to school with the help of his parents (though staff has told him several times that might not be possible this semester). The patient was seen and assessed today, and progress was reviewed with nursing. Sleep was "good"; noted to be for 8 hours by staff, though Nolberto said that he slept for longer than that because his new medication (Depakote) is still making him a little groggy after we increased his dose on Wednesday evening. He also said that the medication was helping, and that he felt more calm and focused, as well as "making my thoughts more stable, less paranoid." He reports no other side effects. His appetite has been "good" and he has eaten all of his meals. ROS: Sleep has been "good". Appetite is "good, I'm always hungry." Mood is 8-9/10 this morning. Denies SI/HI. Denies headache, chest pain, shortness of breath, nausea/vomiting, numbness/tingling, pain. MSE: Appearance is that of a neatly groomed, casually dressed male who appears his stated age. The patient is generally cooperative with the interview. Eye contact is limited. Motor behavior is normal, though he seemed a bit restless. Speech: normal volume, rate, tone. Affect: congruent with mood. Mood: "good, 8-9 /10". Thought process: goal directed. Thought content: denies SI/HI. Denies hallucinations, illusions. Intelligence is estimated to be above average. Insight is estimated to be fair. Judgment is estimated to be fair. ASSESSMENT: This is a 21 year old male with a history of bipolar I and major depressive disorder who presented to the [facility] early morning from the ED after being brought in by campus police for increasingly agitated/odd behavior, an apparent bipolar episode. Today he is feeling "pretty good" and appears much more calm and comfortable. He states that the Depakote that was started on Wednesday evening has been helping to stabilize his thoughts and to calm him down. He is looking forward to meeting with his family today. PLAN: 1. Bipolar I disorder a. Continue Ativan and Risperdal PRN until mood stabilizer is effective. b. Start Depakote 250 mg TID; monitor blood levels of drug and ammonia levels - dose was increased to 1,000 mg TID. c. Encourage group attendance and interaction with other residents. d. Work to set up aftercare in his place of residence when not at [facility] ([facility]). Contact [facility] student affairs to set up potential leave of absence. e. Family meeting scheduled at noon today. Follow up with social work. Date of Service: Feb 01, 2017.
[2017-02-01] MEDS: RISPERIDONE 1 MG TAB PO PRN (12:08)
--- NOTE | 2017-02-01 12:58 | Psychiatric Progress Notes ---
Progress Note Date of Service Feb 01, 2017. 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 A 302 petition her statement was made in the emergency room but can help denied the warrant. The patient was willing to sign in voluntarily. He presents in a somewhat mixed state. Chief Complaint "Will you sign this? (POA paperwork)" Subjective Patient was seen & assessed interval progress reviewed with Treatment Team. Staff report he had an episode of agitation during this visit from his father yesterday, was paranoid and said he did not believe that his father was really his father, and was talking about being illegally detained was brought here by police. He received a dose of risperidone 1 mg. He then got his bedtime medications early and was able to go to community meeting. He said he was worried about his family meeting with parents, which was held today. He also requested a prn dose of risperidone 1mg prior to the meeting. The delinquency prevention social worker spoke with staff at [facility], and they are still trying to gather information about what patient is facing at discharge ( awaiting response from [facility] life and the conduct office), but they did get feedback from professors saying that he can get deferred grades for his current two classes and could return home and complete the course work from there. It is still not clear whether or not he can return to the dorms. Apparently his roommate already moved out. Today he was seen with Morelia Johnson, MS3. He says his meeting with his parents went better than he expected, "what my parents said really clicked with me." He says they discussed what treatment he would get after discharge from the hospital (PHP) and the importance of communicating with his physician about his medication, communicating with his parents and using their support. He was happy to hear that the [employer] was allowing him to complete his coursework from home, and plans to contact Office of Student Affairs/Conduct with social work later today. When asked about his outburst/ paranoia last night, he says "I florencia exploded over nothing, small potatoes." He says he was upset that his father was talking to nursing staff "about them giving me something to calm me down." He is not able to explain why he was getting upset, but says he "felt it coming on." Sleep Information Total Hours of Sleep: 8.00 Meal Information Percent of Breakfast Consumed: 100 Percent of Lunch Consumed: 75 Percent of Dinner Consumed: 100 Mental Status Exam During interview pt is: alert and oriented, cooperative Appearance: appropriately dressed, appropriately groomed Eye contact is: poor Motor behavior is: steady gait & station, no abnormal motor movements Speech: normal in rate, rhythm & volume Affect: irritable (mild), other (calmer and more appropriate today) Mood is: other ("okay") Thought process: goal directed Thought content: reality based without delusions Suicidal thought are: denied Homicidal thoughts are: denied Hallucinations: denies auditory, denies visual Cognition: attention grossly intact, language grossly intact Intelligence estimated to be: average Insight: impaired Judgement: impaired Impression Sleep and manic and psychotic symptoms are improving. We are titrating up on risperidone and Depakote. He had a family meeting with his parents today, and will be going home after discharge and pursuing PHP. We are attempting to get records from past providers and to coordinate with the [place] re: any concerns they have and whether he will be allowed back into the dorms. Plan (1) bipolar 1 disorder, currently with mixed features 01/28 - Will start Risperdal 0.5 mg twice a day while we get a better medication history from parents. Consideration is being given to Depakote or lithium as a mood stabilizer. - Will order a fasting lipid panel and fasting glucose for monitoring on atypicals - Every 15 minute checks for safety - Encourage participation in group and individual counseling as tolerated - Encourage the patient to engage in quieting behaviors - Will need psychiatric aftercare although location not currently determined as he may need to withdraw from school this semester. - Obtain records from previous hospitalizations and outpatient providers - Family meeting if indicated 01/29 - Increase Risperdal to 0.5 mg. AM and 1 mg. HS - Start Depakote ER 500 mg. tonight increasing to 1000 mg tomorrow with level 5 days following. - Reviewed monitoring labs WNL 01/30 - Increase risperidone to 0.5mg qam and 2mg qhs, and continue Depakote 1000mg qhs. - Family meeting with parents scheduled for Wednesday. 01/31 - D/c AM dose of risperidone but continue 2mg qhs and Depakote 1000mg qhs. 02/01 - Continue Depakote 1000mg qhs, and risperidone 2mg qhs, and monitor prn use as dose may need to be increased. - FM held with parents, will refer to JACKIE Rodriguez). Discharge / Aftercare Planning Primary Care Physician: Name: Dr. Meir Mahoney, [facility] Date of Appointment: Feb 15, 2017 Time of Appointment: 1:00 PM Appointment Notes: medication check for over winter break Other: Name of Appointment [facility] Date of Appointment #1: Feb 04, 2017 Time of Appointment #1: 10 AM Appointment #1 Notes: Regi [facility] Picker Visit Code E&M Code: 06997 Inventory Assets Strengths: Intelligence, support from parents Needs: To remain on medications as prescribed Risk Factors Assessment Male: Yes : Yes /single/: Yes Higher / Fall in social status: No Health problems: No Mental Health Diagnoses: Yes Substance use disorders: No Previous attempt: No Family history of suicide: No Previous psychiatric stay: Yes Hopelessness: No Smoker: No Protective Factors Assessment Church beliefs: Yes : No Responsible for young children: No Employed: No Stable relationships: No Supportive family: Yes Good rapport with provider: No (No psychiatric providers) Data Vital Signs Last 24 Hrs: Date Time Temp Pulse Resp B/P (MAP) Pulse Ox O2 Delivery O2 Flow Rate FiO2 02/01/17 07:15 36.4 57 16 101/61 91 108/67 Meds Administered Last 24 Hrs: Meds Administered (Past 24Hrs) Medications (Trade) Dose Ordered Sig/Archie Route Start Time Stop Time Status Last Admin Dose Admin Risperidone (Risperdal Tab) 2 mg HS PO 01/30/17 22:00 02/28/17 21:59 01/31/17 19:51 2 MG
[2017-02-01 18:39] LABS: SYNTHETIC CANNABINOIDS QL URIN NEGATIVE (Negative)
[2017-02-01] MEDS: DIVALPROEX 500 MG EXTENDED RELEASE TAB PO SCH (21:49)
[2017-02-01] MEDS: RISPERIDONE 1 MG TAB PO SCH (21:50)
[2017-02-02 06:56] VITALS: BP_SYST 126; BP_SYST 133; BP_DIAS 80; BP_DIAS 85; PULSE 88; PULSE 96; TEMP 36.5
--- NOTE | 2017-02-02 09:00 | Medical Student: BHU Only ---
Psychiatric Progress Note SUBJECTIVE: Nolberto is a 21-year-old male who presented to the ED four days ago after [facility] campus police were called to his dorm for increasing agitation and apparent bipolar episode. Today he says that he is doing "well" and that his mood is "10/ 10". Yesterday his parents were here for a family meeting that I was able to attend, and based on both my passive observation and on Nolberto's comments to me, it went very well. He was pleased that his parents voiced that they would always love him and be there for him no matter what, and he felt very supported. Nolberto was able to recognize that he could reach out to his parents for more than just crisis situations. 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 The patient was seen and assessed today, and progress was reviewed with nursing. Sleep was "good"; noted to be for 6.5 hours by staff. He is tolerating the Depakote well and states that he feels more calm and focused, as well as the fact that it is "making my thoughts more stable, less paranoid." He reports no other side effects. His appetite has been "good" and he has eaten all of his meals. ROS: Sleep has been "good". Appetite is "good, I'm always hungry." Mood is 10/10 this morning. Denies SI/HI. Denies headache, chest pain, shortness of breath, nausea/vomiting, numbness/tingling, pain. MSE: Appearance is that of a neatly groomed, casually dressed male who appears his stated age. The patient is generally cooperative with the interview. Eye contact is limited. Motor behavior is normal, much less restless than he has been. Speech: normal volume, rate, tone. Affect: congruent with mood. Mood: "good, 10/ 10". Thought process: goal directed. Thought content: denies SI/HI. Denies hallucinations, illusions. Intelligence is estimated to be above average. Insight is estimated to be good. Judgment is estimated to be fair. ASSESSMENT: This is a 21 year old male with a history of bipolar I and major depressive disorder who presented to the [facility] early morning from the ED after being brought in by campus police for increasingly agitated/odd behavior, an apparent bipolar episode. Today he is feeling "good" and appears much more calm and comfortable. He states that the Depakote that was started on Wednesday evening has been helping to stabilize his thoughts and to calm him down. His family meeting yesterday was very successful in both establishing trust and planning for discharge. His mood, manic behavior, and agitation have improved immensely since I first met him last week. PLAN: 1. Bipolar I disorder a. Continue Ativan and Risperdal PRN until mood stabilizer is effective. b. Start Depakote 250 mg TID; monitor blood levels of drug and ammonia levels - dose was increased to 1,000 mg TID on Wednesday and has been maintained. c. Encourage group attendance and interaction with other residents. d. Work to set up aftercare in his place of residence when not at [facility] ([facility]) - contact [facility] about enrolling Nolberto in their partial program after discharge. e. Contact [employer] [facility] [facility] student affairs to set up extended semester -- will have Nolberto call with Lisseth this afternoon. Date of Service: Feb 02, 2017.
--- NOTE | 2017-02-02 09:54 | Psychiatric Progress Notes ---
Progress Note Date of Service Feb 02, 2017. 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 A 302 petition her statement was made in the emergency room but can help denied the warrant. The patient was willing to sign in voluntarily. He presents in a somewhat mixed state. Chief Complaint "Pretty good.". Subjective Patient was seen & assessed interval progress reviewed with Treatment Team. The patient had a meeting with his parents yesterday. He admits that he was initially pretty agitated, but did calm down. He says that he felt it was more of a family therapy session as they all talked about their hopes and concerns. He has agreed to defer his grades for this semester with the intention of finishing later, and return for the spring. He is also willing to attend partial hospitalization at home until then. He says that that meds are helping him, that he feels calmer on them, thoughts slower. He denies having any more fearful thoughts similar to Wednesday when he thought his father was not his father. He denies aud/vis hallucinations, denies SI/HI. Yesterday he was given a prn by nursing prior to his meeting due to concerns for his level of agitation. He felt that it was unnecessary, but does say that it helped him to feel calmer. He denies side effects to meds. Denies any further constipation having moved his bowels today. Review of Systems Constitutional: No fever, No chills, No sweats, No weight loss, No weakness, No fatigue, No problem reported ENT: No hearing loss, No unusual epistaxis, No nasal symptoms, No sore throat, No tinnitus, No dental problems, No trouble swallowing, No problem reported Respiratory: No cough, No sputum, No wheezing, No shortness of breath, No dyspnea on exertion, No dyspnea at rest, No hemoptysis, No problem reported Cardiovascular: No chest pain, No orthopnea, No PND, No edema, No claudication , No palpitations, No problem reported Abdomen: No pain, No nausea, No vomiting, No diarrhea, No constipation, No GI bleeding, No problem reported Musculoskeletal: No joint pain, No muscle pain, No swelling, No calf pain, No problem reported Neurologic: No memory loss, No paralysis, No weakness, No numbness/tingling, No vertigo, No balance problems, No problem reported Psychiatric: No depression symptoms, No anhedonism, No anxiety, No insomnia, No substance abuse, No problem reported Integumentary: No rash, No itch, No new/changing skin lesions, No color change , No bleeding, No problem reported Sleep Information Total Hours of Sleep: 6.25 Meal Information Percent of Breakfast Consumed: 100 Percent of Lunch Consumed: 50 Percent of Dinner Consumed: 100 Mental Status Exam During interview pt is: alert and oriented, cooperative Appearance: appropriately dressed, appropriately groomed Eye contact is: fair, poor Motor behavior is: steady gait & station, no abnormal motor movements Speech: normal in rate, rhythm & volume Affect: blunted Mood is: other ("Pretty good") Thought process: goal directed Thought content: reality based without delusions Suicidal thought are: denied Homicidal thoughts are: denied Hallucinations: denies auditory, denies visual Cognition: attention grossly intact, language grossly intact Intelligence estimated to be: average Insight: impaired Judgement: impaired Impression He admits that meds are slowing him down, and are helpful. Has had 1 prn each of the last 2 days so will increase Risperdal to 3 mg. HS. Will have depakote level on 02/04. Referral has been sent for partial hospitalization in [place] , and we await a response. Plan (1) bipolar 1 disorder, currently with mixed features 01/28 - Will start Risperdal 0.5 mg twice a day while we get a better medication history from parents. Consideration is being given to Depakote or lithium as a mood stabilizer. - Will order a fasting lipid panel and fasting glucose for monitoring on atypicals - Every 15 minute checks for safety - Encourage participation in group and individual counseling as tolerated - Encourage the patient to engage in quieting behaviors - Will need psychiatric aftercare although location not currently determined as he may need to withdraw from school this semester. - Obtain records from previous hospitalizations and outpatient providers - Family meeting if indicated 01/29 - Increase Risperdal to 0.5 mg. AM and 1 mg. HS - Start Depakote ER 500 mg. tonight increasing to 1000 mg tomorrow with level 5 days following. - Reviewed monitoring labs WNL 01/30 - Increase risperidone to 0.5mg qam and 2mg qhs, and continue Depakote 1000mg qhs. - Family meeting with parents scheduled for Wednesday. 01/31 - D/c AM dose of risperidone but continue 2mg qhs and Depakote 1000mg qhs. 02/01 - Continue Depakote 1000mg qhs, and risperidone 2mg qhs, and monitor prn use as dose may need to be increased. - FM held with parents[facility] 02/02 - Increase risperdal to 3 mg. HS - Depakote level on Discharge / Aftercare Planning Primary Care Physician: Name: Dr. Meir Mahoney, [facility] Date of Appointment: Feb 15, 2017 Time of Appointment: 1:00 PM Appointment Notes: medication check for over winter break Other: Name of App[facility] Date of Appointment #1: Feb 04, 2017 Time of Appointment #1: 10 AM Appointment #1 Notes: Regi Crystal Gazer Visit Code E&M Code: 21889 Inventory Assets Strengths: Intelligence, support from parents Needs: To remain on medications as prescribed Risk Factors Assessment Male: Yes : Yes /single/: Yes Higher / Fall in social status: No Health problems: No Mental Health Diagnoses: Yes Substance use disorders: No Previous attempt: No Family history of suicide: No Previous psychiatric stay: Yes Hopelessness: No Smoker: No Protective Factors Assessment Mosque beliefs: Yes : No Responsible for young children: No Employed: No Stable relationships: No Supportive family: Yes Good rapport with provider: No (No psychiatric providers) Data Vital Signs Last 24 Hrs: Date Time Temp Pulse Resp B/P (MAP) Pulse Ox O2 Delivery O2 Flow Rate FiO2 02/02/17 06:56 36.5 88 16 133/80 96 126/85 Meds Administered Last 24 Hrs: Current Inpatient Medications Medications (Trade) Dose Ordered Sig/Archie Route Start Time Stop Time Status Last Admin Dose Admin Acetaminophen (Tylenol Tab) 650 mg Q4H PRN PO 01/28/17 05:30 02/27/17 05:29 Al Hydroxide/Mg Hydroxide (Maalox Susp) 30 ml Q4H PRN PO 01/28/17 05:30 02/27/17 05:29 Bismuth Subsalicylate (Kaopectate Liqd) 15 ml DAILY PRN PO 01/28/17 05:30 02/27/17 05:29 Magnesium Hydroxide (Milk Of Magnesia Susp) 30 ml DAILY PRN PO 01/28/17 05:30 02/27/17 05:29 Sodium Chloride (Moffat Nasal [place]) PRN PRN NA 01/28/17 05:30 02/27/17 05:29 Hydroxyzine HCl (Vistaril Tab) 50 mg HSZ PRN PO 01/28/17 05:30 02/27/17 05:29 01/28/17 23:34 50 MG Hydroxyzine HCl (Vistaril Tab) 25 mg Q4H PRN PO 01/28/17 05:30 02/27/17 05:29 01/28/17 06:08 25 MG Risperidone (Risperdal Tab) 1 mg Q6H PRN PO 01/29/17 08:45 02/28/17 08:44 02/01/17 12:08 1 MG Divalproex Sodium (Depakote Extended Rel Tab) 1,000 mg Taper HS PO 01/29/17 22:00 03/01/17 21:59 02/01/17 21:49 1,000 MG Risperidone (Risperdal Tab) 2 mg HS PO 01/30/17 22:00 02/28/17 21:59 02/01/17 21:50 2 MG Lab Results Last 24 Hrs: 01/27/17 22:02 Red Blood Count 4.71, Mean Corpuscular Volume 90.2, Mean Corpuscular Hemoglobin 31.6, Mean Corpuscular Hemoglobin Concent 35.1, Mean Platelet Volume 10.5, Neutrophils (%) (Auto) 80.9, Lymphocytes (%) (Auto) 11.8, Monocytes (%) (Auto) 6.7, Eosinophils (%) (Auto) 0.0, Basophils (%) (Auto) 0.3, Neutrophils # (Auto) 9.08, Lymphocytes # (Auto) 1.32, Monocytes # (Auto) 0.75, Eosinophils # (Auto) 0.00, Basophils # (Auto) 0.03 01/27/17 22:02 Test 01/27/17 21:55 01/27/17 22:02 01/29/17 07:09 Urine Color YELLOW Urine Appearance CLEAR (CLEAR) Urine pH 6.5 (4.5-7.5) Urine Specific [place] 1.008 (1.000-1.030) Urine Protein NEG (NEG) Urine Glucose (UA) NEG (NEG) Urine Ketones NEG (NEG) Urine Occult Blood NEG (NEG) Urine Nitrite NEG (NEG) Urine Bilirubin NEG (NEG) Urine Urobilinogen NEG (NEG) Urine Leukocyte Esterase NEG (NEG) Urine Synthetic Stimulants see note Urine Opiates Screen NEG (NEG) Urine Methadone, Qualitative NEG (NEG) Urine Barbiturates NEG (NEG) Urine Phencyclidine (PCP) Level NEG (NEG) Ur Amphetamine/Methamphetamine NEG (NEG) MDMA (Ecstasy) Screen NEG (NEG) Urine Benzodiazepines Screen NEG (NEG) Urine Cocaine Metabolite NEG (NEG) Cannabinoids Comment see note Urine Synthetic Cannabinoids NEGATIVE (Negative) Ur Synthetic Cannabinoids Confirm (()) Urine Marijuana (THC) NEG (NEG) White Blood Count 11.21 K/uL (4.8-10.8) Red Blood Count 4.71 M/uL (4.7-6.1) Hemoglobin 14.9 g/dL (14.0-18.0) Hematocrit 42.5 % (42-52) Mean Corpuscular Volume 90.2 fL (80-100) Mean Corpuscular Hemoglobin 31.6 pg (25-34) Mean Corpuscular Hemoglobin Concent 35.1 g/dl (32-36) Platelet Count 282 K/uL (130-400) Mean Platelet Volume 10.5 fL (7.4-10.4) Neutrophils (%) (Auto) 80.9 % Lymphocytes (%) (Auto) 11.8 % Monocytes (%) (Auto) 6.7 % Eosinophils (%) (Auto) 0.0 % Basophils (%) (Auto) 0.3 % Neutrophils # (Auto) 9.08 K/uL (1.4-6.5) Lymphocytes # (Auto) 1.32 K/uL (1.2-3.4) Monocytes # (Auto) 0.75 K/uL (0.11-0.59) Eosinophils # (Auto) 0.00 K/uL (0-0.5) Basophils # (Auto) 0.03 K/uL (0-0.2) RDW Standard Deviation 40.6 fL (36.4-46.3) RDW Coefficient of Variation 12.3 % (11.5-14.5) Immature Granulocyte % (Auto) 0.3 % Immature Granulocyte # (Auto) 0.03 K/uL (0.00-0.02) Anion Gap 7.0 mmol/L (3-11) Est Creatinine Clear Calc Drug Dose 102.8 ml/min Estimated GFR () 98.3 Estimated GFR (Non- 84.8 BUN/Creatinine Ratio 19.0 (10-20) Calcium Level 9.0 mg/dl (8.5-10.1) Total Bilirubin 0.5 mg/dl (0.2-1) Aspartate Amino Transf (AST/SGOT) 16 U/L (15-37) Alanine Aminotransferase (ALT/SGPT) 27 U/L (12-78) Alkaline Phosphatase 70 U/L (45-117) Total Protein 7.9 gm/dl (6.4-8.2) Albumin 4.7 gm/dl (3.4-5.0) Globulin 3.2 gm/dl (2.5-4.0) Albumin/Globulin Ratio 1.5 (0.9-2) Thyroid Stimulating Hormone (TSH) 1.730 uIu/ml (0.300-4.500) Salicylates Level < 1.7 mg/dl (2.8-20) Acetaminophen Level < 2 ug/ml (10-30) Ethyl Alcohol mg/dL < 3.0 mg/dl (0-3) Fasting Glucose 79 mg/dl (70-99) Triglycerides Level 35 mg/dl (0-150) Cholesterol Level 119 mg/dl (0-200) HDL Cholesterol 74 mg/dl LDL Cholesterol, Calculated 38 mg/dl VLDL Cholesterol, Calculated 7 mg/dl Cholesterol/HDL Ratio 1.6
[2017-02-02] MEDS: RISPERIDONE 3 MG TAB PO SCH (21:03)
[2017-02-02] MEDS: DIVALPROEX 500 MG EXTENDED RELEASE TAB PO SCH (21:03)
[2017-02-03 06:59] VITALS: BP_SYST 112; BP_SYST 132; BP_DIAS 72; BP_DIAS 90; PULSE 86; PULSE 94; TEMP 36.4
--- NOTE | 2017-02-03 09:01 | Psychiatric Progress Notes ---
Progress Note Date of Service Feb 03, 2017. Interval History 21-year-old [employer] [facility] [employer] student with a history of bipolar disorder by report, presents with unusual behaviors, disrupting others at his storm. A 302 petition her statement was made in the emergency room but can help denied the warrant. The patient was willing to sign in voluntarily. He presents in a somewhat mixed state. Chief Complaint "I'm alright.". Subjective Patient was seen & assessed interval progress reviewed with Treatment Team. The patient says that he slept well, with some mild fatigue this AM, but was still up before breakfast. He is hoping for discharge soon and knows that he will need to go to the university and cook pickled meat his belongings, "I'm being kicked out of the dorms.". He is aware that he needs to have a conversation with the Office of Student Conduct prior to returning to school. He denies any delusions today as well as aud/vis hallucinations. We discuss the need for good , consistent sleep, and recognizing that when his thoughts speed up, he should seek the christian counselor of his psychiatrist. He feels that his thoughts are slow today. He denies side effects to meds and feel that they are helping. Review of Systems Constitutional: + fatigue ENT: No hearing loss, No unusual epistaxis, No nasal symptoms, No sore throat, No tinnitus, No dental problems, No trouble swallowing, No problem reported Respiratory: No cough, No sputum, No wheezing, No shortness of breath, No dyspnea on exertion, No dyspnea at rest, No hemoptysis, No problem reported Cardiovascular: No chest pain, No orthopnea, No PND, No edema, No claudication , No palpitations, No problem reported Abdomen: No pain, No nausea, No vomiting, No diarrhea, No constipation, No GI bleeding, No problem reported Musculoskeletal: No joint pain, No muscle pain, No swelling, No calf pain, No problem reported Neurologic: No memory loss, No paralysis, No weakness, No numbness/tingling, No vertigo, No balance problems, No problem reported Psychiatric: + problem reported ("I'm alright") Integumentary: No rash, No itch, No new/changing skin lesions, No color change , No bleeding, No problem reported Sleep Information Total Hours of Sleep: 7.00 Meal Information Percent of Breakfast Consumed: 100 Percent of Lunch Consumed: 100 Percent of Dinner Consumed: 100 Mental Status Exam During interview pt is: alert and oriented, cooperative Appearance: appropriately dressed, appropriately groomed Eye contact is: fair Motor behavior is: steady gait & station, no abnormal motor movements Speech: normal in rate, rhythm & volume Affect: blunted Mood is: other ("Pretty good") Thought process: goal directed Thought content: reality based without delusions Suicidal thought are: denied Homicidal thoughts are: denied Hallucinations: denies auditory, denies visual Cognition: attention grossly intact, language grossly intact Intelligence estimated to be: average Insight: impaired Judgement: impaired Impression Tolerating the increase in Risperdal with minimal AM sedation. Social work will assist him to call the Office of Student conduct today. If progress continues, may be able to discharge in the next day or so. Plan (1) bipolar 1 disorder, currently with mixed features 01/28 - Will start Risperdal 0.5 mg twice a day while we get a better medication history from parents. Consideration is being given to Depakote or lithium as a mood stabilizer. - Will order a fasting lipid panel and fasting glucose for monitoring on atypicals - Every 15 minute checks for safety - Encourage participation in group and individual counseling as tolerated - Encourage the patient to engage in quieting behaviors - Will need psychiatric aftercare although location not currently determined as he may need to withdraw from school this semester. - Obtain records from previous hospitalizations and outpatient providers - Family meeting if indicated 01/29 - Increase Risperdal to 0.5 mg. AM and 1 mg. HS - Start Depakote ER 500 mg. tonight increasing to 1000 mg tomorrow with level 5 days following. - Reviewed monitoring labs WNL 01/30 - Increase risperidone to 0.5mg qam and 2mg qhs, and continue Depakote 1000mg qhs. - Family meeting with parents scheduled for Wednesday. 01/31 - D/c AM dose of risperidone but continue 2mg qhs and Depakote 1000mg qhs. 02/01 - Continue Depakote 1000mg qhs, and risperidone 2mg qhs, and monitor prn use as dose may need to be increased. - FM held with parents, will refer to [facility] ([facility] 02/02 - Increase risperdal to 3 mg. HS - Depakote level on 127 02/03 - Continue current meds. - Depakote level tomorrow. Discharge / Aftercare Planning Primary Care Physician: Name: Dr. Meir Mahoney, [facility] Date of Appointment: Feb 15, 2017 Time of Appointment: 1:00 PM Appointment Notes: medication check for over winter break Partial or Psych Rehab: Name: Jo Ann Rodriguez [facility] Date of Appointment: Feb 10, 2017 Time of Appointment: 9:00 AM Appointment Notes: Crisis Number: Other: [facility] Date of Appointment #1: Feb 04, 2017 Time of Appointment #1: 10 AM Appointment #1 Notes: [employer] Visit Code E&M Code: 54539 Inventory Assets Strengths: Intelligence, support from parents Needs: To remain on medications as prescribed Risk Factors Assessment Male: Yes : Yes /single/: Yes Higher / Fall in social status: No Health problems: No Mental Health Diagnoses: Yes Substance use disorders: No Previous attempt: No Family history of suicide: No Previous psychiatric stay: Yes Hopelessness: No Smoker: No Protective Factors Assessment Church beliefs: Yes : No Responsible for young children: No Employed: No Stable relationships: No Supportive family: Yes Good rapport with provider: No (No psychiatric providers) Data Vital Signs Last 24 Hrs: Date Time Temp Pulse Resp B/P (MAP) Pulse Ox O2 Delivery O2 Flow Rate FiO2 02/03/17 06:59 36.4 86 16 112/72 94 132/90 Meds Administered Last 24 Hrs: Meds Administered (Past 24Hrs) Medications (Trade) Dose Ordered Sig/Archie Route Start Time Stop Time Status Last Admin Dose Admin Risperidone (Risperdal Tab) 3 mg HS PO 02/02/17 22:00 03/04/17 21:59 02/02/17 21:03 3 MG Lab Results Last 24 Hrs: 01/27/17 22:02 Red Blood Count 4.71, Mean Corpuscular Volume 90.2, Mean Corpuscular Hemoglobin 31.6, Mean Corpuscular Hemoglobin Concent 35.1, Mean Platelet Volume 10.5, Neutrophils (%) (Auto) 80.9, Lymphocytes (%) (Auto) 11.8, Monocytes (%) (Auto) 6.7, Eosinophils (%) (Auto) 0.0, Basophils (%) (Auto) 0.3, Neutrophils # (Auto) 9.08, Lymphocytes # (Auto) 1.32, Monocytes # (Auto) 0.75, Eosinophils # (Auto) 0.00, Basophils # (Auto) 0.03 01/27/17 22:02 Test 01/27/17 21:55 01/27/17 22:02 01/29/17 07:09 Urine Color YELLOW Urine Appearance CLEAR (CLEAR) Urine pH 6.5 (4.5-7.5) Urine Specific [place] 1.008 (1.000-1.030) Urine Protein NEG (NEG) Urine Glucose (UA) NEG (NEG) Urine Ketones NEG (NEG) Urine Occult Blood NEG (NEG) Urine Nitrite NEG (NEG) Urine Bilirubin NEG (NEG) Urine Urobilinogen NEG (NEG) Urine Leukocyte Esterase NEG (NEG) Urine Synthetic Stimulants see note Urine Opiates Screen NEG (NEG) Urine Methadone, Qualitative NEG (NEG) Urine Barbiturates NEG (NEG) Urine Phencyclidine (PCP) Level NEG (NEG) Ur Amphetamine/Methamphetamine NEG (NEG) MDMA (Ecstasy) Screen NEG (NEG) Urine Benzodiazepines Screen NEG (NEG) Urine Cocaine Metabolite NEG (NEG) Cannabinoids Comment see note Urine Synthetic Cannabinoids NEGATIVE (Negative) Ur Synthetic Cannabinoids Confirm (()) Urine Marijuana (THC) NEG (NEG) White Blood Count 11.21 K/uL (4.8-10.8) Red Blood Count 4.71 M/uL (4.7-6.1) Hemoglobin 14.9 g/dL (14.0-18.0) Hematocrit 42.5 % (42-52) Mean Corpuscular Volume 90.2 fL (80-100) Mean Corpuscular Hemoglobin 31.6 pg (25-34) Mean Corpuscular Hemoglobin Concent 35.1 g/dl (32-36) Platelet Count 282 K/uL (130-400) Mean Platelet Volume 10.5 fL (7.4-10.4) Neutrophils (%) (Auto) 80.9 % Lymphocytes (%) (Auto) 11.8 % Monocytes (%) (Auto) 6.7 % Eosinophils (%) (Auto) 0.0 % Basophils (%) (Auto) 0.3 % Neutrophils # (Auto) 9.08 K/uL (1.4-6.5) Lymphocytes # (Auto) 1.32 K/uL (1.2-3.4) Monocytes # (Auto) 0.75 K/uL (0.11-0.59) Eosinophils # (Auto) 0.00 K/uL (0-0.5) Basophils # (Auto) 0.03 K/uL (0-0.2) RDW Standard Deviation 40.6 fL (36.4-46.3) RDW Coefficient of Variation 12.3 % (11.5-14.5) Immature Granulocyte % (Auto) 0.3 % Immature Granulocyte # (Auto) 0.03 K/uL (0.00-0.02) Anion Gap 7.0 mmol/L (3-11) Est Creatinine Clear Calc Drug Dose 102.8 ml/min Estimated GFR () 98.3 Estimated GFR (Non- 84.8 BUN/Creatinine Ratio 19.0 (10-20) Calcium Level 9.0 mg/dl (8.5-10.1) Total Bilirubin 0.5 mg/dl (0.2-1) Aspartate Amino Transf (AST/SGOT) 16 U/L (15-37) Alanine Aminotransferase (ALT/SGPT) 27 U/L (12-78) Alkaline Phosphatase 70 U/L (45-117) Total Protein 7.9 gm/dl (6.4-8.2) Albumin 4.7 gm/dl (3.4-5.0) Globulin 3.2 gm/dl (2.5-4.0) Albumin/Globulin Ratio 1.5 (0.9-2) Thyroid Stimulating Hormone (TSH) 1.730 uIu/ml (0.300-4.500) Salicylates Level < 1.7 mg/dl (2.8-20) Acetaminophen Level < 2 ug/ml (10-30) Ethyl Alcohol mg/dL < 3.0 mg/dl (0-3) Fasting Glucose 79 mg/dl (70-99) Triglycerides Level 35 mg/dl (0-150) Cholesterol Level 119 mg/dl (0-200) HDL Cholesterol 74 mg/dl LDL Cholesterol, Calculated 38 mg/dl VLDL Cholesterol, Calculated 7 mg/dl Cholesterol/HDL Ratio 1.6
--- NOTE | 2017-02-03 13:13 | Medical Student: BHU Only ---
Psychiatric Progress Note SUBJECTIVE: Nolberto is a 21-year-old male who presented to the ED four days ago after [facility] campus police were called to his dorm for increasing agitation and apparent bipolar episode. Today he says that he is doing "well" and that his mood is "10/ 10". 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 He has an appointment with student affairs tomorrow at 10 AM. He is hopeful for discharge before that tomorrow. The patient was seen and assessed today, and progress was reviewed with nursing. Sleep was "good"; noted to be for 8 hours by staff. He is tolerating the Depakote well and states that he feels more calm and focused, as well as the fact that it is "making my thoughts more stable, less paranoid." He reports no other side effects. His appetite has been "good" and he has eaten all of his meals. ROS: Sleep has been "good". Appetite is "good, I'm always hungry." Mood is 10/10 this morning. Denies SI/HI. Denies headache, chest pain, shortness of breath, nausea/vomiting, numbness/tingling, pain. MSE: Appearance is that of a neatly groomed, casually dressed male who appears his stated age. The patient is generally cooperative with the interview. Eye contact is fair. Motor behavior is normal, much less restless than he has been. Speech: normal volume, rate, tone. Affect: congruent with mood. Mood: "good, 10/ 10". Thought process: goal directed. Thought content: denies SI/HI. Denies hallucinations, illusions. Intelligence is estimated to be above average. Insight is estimated to be good. Judgment is estimated to be fair. ASSESSMENT: This is a 21 year old male with a history of bipolar I and major depressive disorder who presented to the [facility] early morning from the ED after being brought in by campus police for increasingly agitated/odd behavior, an apparent bipolar episode. Today he is feeling "good" and appears much more calm and comfortable. He states that the Depakote that was started on Wednesday has been helping to stabilize his thoughts and to calm him down. His family meeting Wednesday was very successful in both establishing trust and planning for discharge. His mood, manic behavior, and agitation have improved immensely since I first met him last week. PLAN: 1. Bipolar I disorder a. Continue Ativan and Risperdal PRN until mood stabilizer is effective. b. Start Depakote 250 mg TID; monitor blood levels of drug and ammonia levels - dose was increased to 1,000 mg TID on Wednesday and has been maintained. c. Encourage group attendance and interaction with other residents. d. Work to set up aftercare in his place of residence when not at [facility] ([facility]) - contact [facility] about enrolling Nolberto in their partial program after discharge. e. Contact [facility] student affairs to set up extended semester -- everything is now set up to defer the semester and finish it at home. f. Plan is to discharge tomorrow morning. Date of Service: Feb 03, 2017.
[2017-02-03] MEDS: DIVALPROEX 500 MG EXTENDED RELEASE TAB PO SCH (21:06)
[2017-02-03] MEDS: RISPERIDONE 3 MG TAB PO SCH (21:07)
[2017-02-04 06:55] VITALS: BP_SYST 108; BP_SYST 118; BP_DIAS 66; BP_DIAS 81; PULSE 72; PULSE 93; TEMP 36.6
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
[2017-02-04] MEDS ORDERED: DPKSR500 PO (09:36)
[2017-02-04] MEDS ORDERED: RSP3 PO (09:36)
== END 2017-02-04 10:45 | disposition home or self-care (01) | DRG 885 ==
LOC: C.EDB 21:16 → C.MHU 01-28 04:59
PROVIDERS: ADMIT Psychiatry & Neurology Psychiatry; ATTEND Psychiatry & Neurology Psychiatry
DX: F31.60 Bipolar disorder, current episode mixed, unspecified (principal); Z87.891 Personal history of nicotine dependence